=== PATIENT | male | born 1945 | race Two or more races ===

== ENCOUNTER 2017-10-09 13:19 | Outpatient (CLI) | payer OTHER ==
[~2017-10-09 13:19] MED LIST: ATACAND HCT 31 UDTA1; DYMISTA NASAL S23 GM; LIPITOR20 MG; NORVASC5 MG; SINGULAIR10 MG; TAMS0.4C
[2017-10-10] MEDS ORDERED: LIPITOR PO (12:59)
[2017-10-10] MEDS ORDERED: DYMISTA NASAL S23 GM (12:59)
[2017-10-10] MEDS ORDERED: TAMS0.4C PO (12:59)
[2017-10-10] MEDS ORDERED: ATACAND HCT 321 EAC1 PO (13:05)
== END 2017-10-09 16:03 | disposition home or self-care (01) ==
LOC: RAD 501 13:19
DX: M22.41 Chondromalacia patellae, right knee (principal)

== ENCOUNTER 2017-10-18 06:00 | Day surgery (SDC) | payer OTHER ==
[~2017-10-18 06:00] MED LIST changes: +ATACAND HCT 321 EAC1 PO; +LIPITOR PO; +TAMS0.4C PO
== END 2017-10-18 11:10 | disposition home or self-care (01) ==
LOC: CIR.AMB 06:00
DX: N30.20 Other chronic cystitis without hematuria (principal)

== ENCOUNTER 2018-07-21 08:08 | Outpatient (CLI) | payer OTHER | END 2018-07-21 08:10 | disposition home or self-care (01) | LOC: SONOGRAMA 08:08 | DX: C67.9 Malignant neoplasm of bladder, unspecified (principal) ==

== ENCOUNTER 2018-11-04 08:45 | Outpatient (CLI) | payer OTHER | END 2018-11-04 08:52 | disposition home or self-care (01) | LOC: RAD 08:45 | DX: M54.5 Low back pain (principal) ==

== ENCOUNTER 2018-11-06 11:22 | Outpatient (CLI) | payer OTHER | END 2018-11-06 11:29 | disposition home or self-care (01) | LOC: LAB 11:22 | DX: M00.861 Arthritis due to other bacteria, right knee (principal) ==

== ENCOUNTER → 2018-11-06 | Outpatient (CLI) | payer OTHER | END | disposition home or self-care (01) | LOC: RAD 10:40 | DX: M17.11 Unilateral primary osteoarthritis, right knee (principal) ==

== ENCOUNTER 2019-04-30 20:23 | Emergency (ER) | payer OTHER ==
[~2019-04-30] VITALS: Ht 172.7 cm; Wt 98.9 kg
== END 2019-04-30 21:00 | disposition home or self-care (01) ==
LOC: ER 20:23
DX: S61.022A Laceration with foreign body of left thumb without damage to nail, initial encounter (principal); W26.8XXA Contact with other sharp object(s), not elsewhere classified, initial encounter; Y93.89 Activity, other specified; Y92.018 Other place in single-family (private) house as the place of occurrence of the external cause; Y99.8 Other external cause status

== ENCOUNTER 2021-01-02 13:15 | Emergency (ER) | payer OTHER ==
[~2021-01-02] VITALS: Ht 172.7 cm; Wt 98.0 kg
[2021-01-02] MEDS ORDERED: DYMISTA NASAL S23 GM NS (13:29)
[2021-01-02] MEDS ORDERED: XELPROS2.5 ML (13:30)
[2021-01-02] MEDS ORDERED: COMBIGAN EYE DRO5 ML (13:31)
== END 2021-01-02 15:00 | disposition home or self-care (01) ==
LOC: ER 13:15
DX: S50.12XA Contusion of left forearm, initial encounter (principal); M79.632 Pain in left forearm; W01.198A Fall on same level from slipping, tripping and stumbling with subsequent striking against other object, initial encounter; Y93.89 Activity, other specified; Y92.513 Shop (commercial) as the place of occurrence of the external cause; Y99.8 Other external cause status

== ENCOUNTER 2023-05-11 23:51 | Emergency (ER) | payer OTHER ==
[~2023-05-11] VITALS: Ht 165.1 cm; Wt 90.7 kg
[~2023-05-11 23:51] MED LIST changes: +COMBIGAN EYE DRO5 ML; +DYMISTA NASAL S23 GM NS; +XELPROS2.5 ML
[2023-05-12] MEDS ORDERED: CHILDREN'S FLO5.9 ML (00:21)
[2023-05-12] MEDS ORDERED: PEPCID20 MG PO (00:22)
[2023-05-12] MEDS ORDERED: LEVOTHYROXINE25 MCG PO (00:22)
[2023-05-12] MEDS ORDERED: CHILDREN'S ASPI81 MG PO (00:23)
[2023-05-12] MEDS ORDERED: LODOCO0.5 MG PO (00:25)
[2023-05-12] MEDS ORDERED: CIPROFLOXACIN IN 5 % DEXTROSE 400 MG/200 ML PIGGYBAG IV STA (03:56)
[2023-05-12 04:45] LABS: HEMATOCRIT 39.1 % (39.0-48.0); HEMOGLOBIN 13.5 g/dL (13-16.00); MEAN CORPUSCULAR HEMOGLOBIN 33.4 pg (27.00-32.0); MEAN CORPUSCULAR HGB CONC 34.5 g/dl (32.0-36.0); PLATELET COUNT 320 K/uL (150-450); RED BLOOD COUNT 4.03 M/uL (4.00-6.00); RED CELL DISTRIBUTION WIDTH 14.2 % (11.5-14.5)
[2023-05-12 04:52] LABS: CALCIUM 9.5 mg/dL (8.5-10.1); CREATININE SERUM 1.01 mg/dL (0.70-1.30); GFR 71.44; POTASSIUM 3.62 mEq/L (3.5-5.1)
[2023-05-12 05:30] LABS: URINE APPEARANCE Clear; URINE BILIRRUBIN Negative (NEGATIVE); URINE BLOOD Large; URINE COLOR Yellow; URINE GLUCOSE Negative (NEGATIVE); URINE LEUKOCYTE Small; URINE NITRATE Negative; URINE PROTEIN Negative (NEGATIVE); URINE UROBILINOGEN 0.2 E.U./dl
[2023-05-12 05:34] LABS: URINE BACTERIA 13.8 uL (0.0-1933); URINE EPITHELIAL CELLS 2.6 uL (0.0-38.8); URINE RBC 469.9 uL (0.0-20.8); URINE WBC 45.2 uL (0.0-23.2)
== END 2023-05-12 06:21 | disposition home or self-care (01) ==
LOC: ER 23:52
DX: R30.0 Dysuria (principal); J06.9 Acute upper respiratory infection, unspecified
CPT/HCPCS: 36415; 96365; 99282; J0744

== ENCOUNTER 2023-10-14 08:07 | Outpatient (CLI) | payer OTHER ==
[~2023-10-14 08:07] MED LIST changes: +CHILDREN'S ASPI81 MG PO; +CHILDREN'S FLO5.9 ML; +LEVOTHYROXINE25 MCG PO; +LODOCO0.5 MG PO; +PEPCID20 MG PO
== END 2023-10-14 08:17 | disposition home or self-care (01) ==
LOC: RAD 08:07 → SONOGRAMA 08:07
PROVIDERS: ATTEND Internal Medicine Cardiovascular Disease
DX: M12.9 Arthropathy, unspecified (principal); M10.9 Gout, unspecified

== ENCOUNTER 2023-10-15 08:19 | Outpatient (CLI) | payer OTHER | END 2023-10-15 08:38 | disposition home or self-care (01) | LOC: TOM 08:19 | PROVIDERS: ATTEND Internal Medicine Cardiovascular Disease | DX: M12.9 Arthropathy, unspecified (principal) | CPT/HCPCS: 73221 ==

== ENCOUNTER 2023-11-06 10:11 | Outpatient (CLI) | payer OTHER | END 2023-11-06 10:12 | disposition home or self-care (01) | LOC: NUCLEAR 10:11 | PROVIDERS: ATTEND Internal Medicine Cardiovascular Disease | DX: I10 Essential (primary) hypertension (principal) ==

== ENCOUNTER 2024-02-29 10:04 | Emergency (ER) | payer OTHER ==
[~2024-02-29] VITALS: Ht 172.7 cm; Wt 94.8 kg
[2024-02-29 10:23] VITALS: BP 103/66; O2SAT 95
[2024-02-29] MEDS ORDERED: IBU600 MG PO (14:26)
== END 2024-02-29 14:38 | disposition home or self-care (01) ==
LOC: ER 10:06
DX: S05.8X2A Other injuries of left eye and orbit, initial encounter (principal); W19.XXXA Unspecified fall, initial encounter; Y93.89 Activity, other specified; Y92.488 Other paved roadways as the place of occurrence of the external cause; Y99.8 Other external cause status

== ENCOUNTER 2024-06-09 08:53 | Outpatient (CLI) | payer OTHER ==
[~2024-06-09 08:53] MED LIST changes: +IBU600 MG PO
== END 2024-06-09 09:05 | disposition home or self-care (01) ==
LOC: RAD 08:53
PROVIDERS: ATTEND Internal Medicine Cardiovascular Disease
DX: M19.90 Unspecified osteoarthritis, unspecified site (principal)